=== PATIENT | male | born 1965 | race Caucasian/White ===

== ENCOUNTER 2024-08-11 06:33 | Day surgery (SDC) | payer OTHER, SELFPAY | END 2024-08-11 16:07 | disposition home or self-care (01) | LOC: GI 06:33 | PROVIDERS: ATTENDING PHYSICIAN Internal Medicine | DX: Z12.11 Encounter for screening for malignant neoplasm of colon (principal); Z86.0100 Personal history of colon polyps, unspecified; D12.3 Benign neoplasm of transverse colon | CPT/HCPCS: 45385; 45380; 88305 ==